=== PATIENT | female | born 1955 | race Caucasian/White ===

== ENCOUNTER 2021-10-16 07:47 | Emergency (ER) | payer MEDICARE ==
[~2021-10-16] VITALS: Ht 162.6 cm; Wt 43.1 kg
[2021-10-16] MEDS ORDERED: MORPHINE 4 MG SYG IV SCH ×2 (08:30→11:00)
[2021-10-16] MEDS ORDERED: KETOROLAC 15MG/ML VIAL (15MG/ML) IV SCH (08:30)
[2021-10-16 08:34] LABS: BASOPHILS % (AUTO) 0.4 % (0.0-5.0); EOSINOPHILS % (AUTO) 0.4 % (0.0-8.0); HEMATOCRIT 30.4 % (36-48); LYMPHOCYTES % (AUTO) 9.2 % (21.0-51.0); MEAN CORPUSCULAR HEMOGLOBIN 31.1 pg (27.0-33.0); MEAN CORPUSCULAR HGB CONC 33.2 g/dL (32.0-36.0); MEAN CORPUSCULAR VOLUME 93.5 fL (79-99); MONOCYTES % (AUTO) 6.1 % (3.0-13.0); NEUTROPHILS % (AUTO) 81.4 % (40.0-77.0); PLATELET COUNT (AUTO) 596 K/uL (130-400); RED BLOOD CELL COUNT(AUTO) 3.25 MIL/uL (4.00-5.50); RED CELL DISTRIBUTION WIDTH 15.6 % (11.0-15.5); WHITE BLOOD COUNT (AUTO) 24.7 K/uL (4.8-10.8)
[2021-10-16] MEDS ORDERED: KETOROLAC 15MG/ML VIAL (15MG/ML) ONE (08:36)
[2021-10-16 08:45] LABS: ALBUMIN 3.4 g/dL (3.5-5.0); CREATININE 0.5 mg/dL (0.5-1.5)
[2021-10-16 08:49] LABS: BILIRUBIN,TOTAL 0.2 mg/dL (0.2-1.0); TOTAL PROTEIN, SERUM 7.8 g/dL (6.0-8.3)
[2021-10-16 08:54] LABS: POTASSIUM 2.2 mmol/L (3.5-5.1)
[2021-10-16] MEDS ORDERED: 0.9%NACL 1000ML 1,000 ML IV SCH (09:00)
[2021-10-16] MEDS ORDERED: KCL 20 MEQ ERTAB PO SCH (09:30)
[2021-10-16 09:34] LABS: APPEARANCE,URINE Clear (CLEAR); BILIRUBIN,URINE Negative (NEGATIVE); COLOR,URINE Dark Yellow (YELLOW); GLUCOSE, URINE (UA) Negative (NEGATIVE); KETONES,URINE Trace mg/dL (NEGATIVE); LEUKOCYTE ESTERASE ,URINE Trace (NEGATIVE); NITRATE,URINE Negative (NEGATIVE); OCCULT BLOOD,URINE Negative (NEGATIVE); PH,URINE 6.5 (5.0-8.0); PROTEIN,URINE POS 1+ mg/dL (NEGATIVE)
[2021-10-16] MEDS ORDERED: IOHEXOL 350 MG/ML 100ML INFUS..BTL IV ONE (09:40)
[2021-10-16] MEDS ORDERED: IOHEXOL-350 50ML VIAL IV ONE (09:40)
[2021-10-16 09:51] LABS: BACTERIA,URINE Rare /HPF (None Seen); RBC,URINE 0-1 /HPF (0-1); SQUAMOUS EPITHELIAL CELL,UR 0-2 /HPF (0-2); WBC,URINE 0-1 /HPF (0-1)
[2021-10-16] MEDS ORDERED: CEFTRIAXONE 1G VIAL IVP SCH (10:30)
[2021-10-16] MEDS ORDERED: ONDANSETRON 4MG INJ IVP SCH (11:00)
[2021-10-16 12:01] VITALS: BP 141/71
== END 2021-10-16 11:35 | disposition left against medical advice (07) ==
LOC: EDH 07:47 → EDHIP 11:28 → UNDOADMOB 11:28 → EDHIP 11:35 → UNDODISOB 11:35
DX: N39.0 Urinary tract infection, site not specified (principal); D72.829 Elevated white blood cell count, unspecified; S00.83XA Contusion of other part of head, initial encounter; M48.54XA Collapsed vertebra, not elsewhere classified, thoracic region, initial encounter for fracture; R11.2 Nausea with vomiting, unspecified; W18.39XA Other fall on same level, initial encounter; Y93.89 Activity, other specified; Y92.89 Other specified places as the place of occurrence of the external cause; Y99.8 Other external cause status
CPT/HCPCS: 36415; 70450; 71275; 74177; 80053; 81001; 83605; 84145; 84484; 85025; 85378; 87040 ×2; 87088; 96361; 96374; 96375; 96376; 99285; J0696; J1885; J2270 ×2; J7030; Q9967 ×2; G0378